=== PATIENT | male | born 1990 | race Caucasian/White ===

== ENCOUNTER 2020-01-23 11:29 | Emergency (ER) | payer OTHER, SELFPAY ==
--- NOTE | ~2020-01-23 | XR_ITS ---
EXAMINATION: XR chest 2V 01/23/2020 12:02 INDICATION: Chest pain PROCEDURE: 2 view chest COMPARISON: No prior studies for comparison. FINDINGS: The lungs are clear. The cardiomediastinal silhouette is within normal limits. There are no pleural effusions. There is no pneumothorax suspected. IMPRESSION: 1: NO ACUTE CARDIOPULMONARY DISEASE. Reviewed, dictated and finalized at location A.
--- NOTE | 2020-01-23 11:30 | ECG_ITS ---
Measurements Intervals [place] Rate: 85 P: 51 DE: 157 QRS: -2 QRSD: 126 T: 78 QT: 341 QTc: 406 Interpretive Statements SINUS RHYTHM INTRAVENTRICULAR CONDUCTION DELAY DELAYED PRECORDIAL R/S TRANSITION BORDERLINE T WAVE ABNORMALITY- LATERAL LEADS BORDERLINE ECG Electronically Signed On 01-23-2020 15:23:16 CDT by Yunier Smith D.O.
[2020-01-23 11:34] VITALS: BP 149/95; PULSE 105; RESP 22; TEMP 36.8; O2SAT 100
[2020-01-23 11:51] LABS: Basophils Absolute Auto 0.1 K/mm3 (0.0-0.1); Basophils Percent Auto 0.9 % (0.2-1.2); Eosinophils Absolute Auto 0.3 K/mm3 (0-0.3); Eosinophils Percent Auto 3.4 % (0-4.4); Hematocrit 47.7 % (42.0-52.0); Immature Granulocyte Absolute 0.02 K/mm3 (0.00-0.031); Immature Granulocyte Percent A 0.2 % (0-0.5); Lymphocytes Absolute Auto 4.12 K/mm3 (0.9-3.2); Lymphocytes Percent Auto 46.4 % (18.3-44.2); Mean Corpuscular HGB Conc 33.5 g/dl (32-36); Mean Corpuscular Hemoglobin 30.5 pg (26-34); Mean Corpuscular Volume 90.9 fl (80-100); Mean Platelet Volume 11.6 fl (7.4-10.4); Monocytes Absolute Auto 0.6 K/mm3 (0.1-0.6); Monocytes Percent Auto 6.2 % (2.6-8.5); Neutrophils Absolute Auto 3.8 K/mm3 (1.3-6.7); Neutrophils Percent Auto 42.9 % (45.5-73.1); Platelet Count Result 193 k/mm3 (150-375); Red Blood Count 5.25 M/mm3 (4.6-6.20); Red Cell Distribution Width 12.5 % (11.5-14.5); White Blood Count 8.9 K/mm3 (4.5-10.0)
[2020-01-23 11:56] VITALS: PULSE 86
[2020-01-23 12:18] VITALS: BP 118/84; PULSE 78; RESP 15; O2SAT 98
--- NOTE | 2020-01-23 12:31 | ED.GENADULT ---
HPI - General Adult General Chief complaint: Chest Pain Stated complaint: cp Time Seen by Provider: 01/23/20 11:44 Source: patient Mode of arrival: ambulatory Limitations: no limitations History of Present Illness HPI narrative: Patient is a 30-year-old male who presents to emergency department for evaluation of cough congestion for the last 2 to 3 days. Patient has not taken anything other than some decongestions for his symptoms notes that he is now having some mild discomfort in the epigastrium denies any dyspnea Related Data Home Medications Medication Instructions Recorded Confirmed rosuvastatin 40 mg PO EVERY OTHER DAY 01/23/20 Allergies Allergy/AdvReac Type Severity Reaction Status Date / Time No Known Allergies Allergy Verified 01/23/20 11:36 Review of Systems Review of Systems: All systems reviewed & are unremarkable except as noted in HPI and below Exam Narrative: Exam Narrative: GENERAL: Well-appearing, well-nourished, and in no acute distress. HEAD: Normocephalic, atraumatic. EYES: PERRLA and EOMI. ENT: Nares clear, no rhinorrhea or epistaxis. Mucous membranes moist. Oropharynx without tonsillar hypertrophy exudate or other lesions. Bilateral TMs pearly llanos nonbulging NECK: Supple. No adenopathy or masses. CHEST: Clear to auscultation. No respiratory distress. No wheezes rales or rhonchi HEART: Regular rate and rhythm. No murmur heard. Normal peripheral pulses. ABDOMEN: Soft, nontender, nondistended EXTREMITIES: Normal range of motion. No edema. SKIN: Warm, dry, no rash. NEURO: No focal deficits. Alert and oriented x3. PSYCH: Normal mood and affect. Course Vital Signs Vital signs: Vital Signs Temperature 98.3 F 01/23/20 11:34 Pulse Rate 105 H 01/23/20 11:34 Respiratory Rate 22 H 01/23/20 11:34 Blood Pressure 149/95 H 01/23/20 11:34 Pulse Oximetry 100 01/23/20 11:34 Temperature 98.3 F 01/23/20 11:34 Pulse Rate 78 01/23/20 12:18 Respiratory Rate 15 01/23/20 12:18 Blood Pressure 118/84 01/23/20 12:18 Pulse Oximetry 98 01/23/20 12:18 Medical Decision Making MDM Narrative Medical decision making narrative: Patient in the room in no distress aware of case findings treatment plan and diagnosis agreeing to follow-up as directed or to return if symptoms worsen or concerns Vital Signs Vital Signs: Vital Signs Temperature 98.3 F 01/23/20 11:34 Pulse Rate 105 H 01/23/20 11:34 Respiratory Rate 22 H 01/23/20 11:34 Blood Pressure 149/95 H 01/23/20 11:34 Pulse Oximetry 100 01/23/20 11:34 Temperature 98.3 F 01/23/20 11:34 Pulse Rate 78 01/23/20 12:18 Respiratory Rate 15 01/23/20 12:18 Blood Pressure 118/84 01/23/20 12:18 Pulse Oximetry 98 01/23/20 12:18 Lab Data Result diagrams: 01/23/20 11:47 01/23/20 12:46 Labs: Lab Results 01/23/20 01/23/20 01/23/20 Range/Units 11:47 12:46 12:46 WBC 8.9 (4.5-10.0) K/mm3 RBC 5.25 (4.6-6.20) M/mm3 Hgb 16.0 (14.0-18.0) g/dL Hct 47.7 (42.0-52.0) % MCV 90.9 (80-100) fl MCH 30.5 (26-34) pg MCHC 33.5 (32-36) g/dl RDW 12.5 (11.5-14.5) % Plt Count 193 (150-375) k/mm3 MPV 11.6 H (7.4-10.4) fl Immature Gran % (Auto) 0.2 (0-0.5) % Neut % (Auto) 42.9 L (45.5-73.1) % Lymph % (Auto) 46.4 H (18.3-44.2) % Johnson % (Auto) 6.2 (2.6-8.5) % Eos % (Auto) 3.4 (0-4.4) % Baso % (Auto) 0.9 (0.2-1.2) % Lymph # (Auto) 4.12 H (0.9-3.2) K/mm3 Johnson # (Auto) 0.6 (0.1-0.6) K/mm3 Eos # (Auto) 0.3 (0-0.3) K/mm3 Baso # (Auto) 0.1 (0.0-0.1) K/mm3 Abs Immat Gran (auto) 0.02 (0.00-0.031) K/mm3 Absolute Neuts (auto) 3.8 (1.3-6.7) K/mm3 Absolute Nucleated RBC 0.0 (0.0-0.012) K/mm3 Nucleated RBC % 0.0 (0.0-0.2) % PT 12.6 (11.1-14.7) Seconds INR 1.0 APTT 27.7 (22.3-36.8) SECONDS Sodium 139 (137-145) mmol/L Potassium 4.1 (3.4-5.0) mmol/L Chlor
[2020-01-23 13:04] LABS: Potassium 4.1 mmol/L (3.4-5.0)
[2020-01-23 13:09] LABS: Blood Urea Nitrogen 16 mg/dL (9-20); Calcium 9.1 mg/dL (8.4-10.2); Carbon Dioxide 29 mmol/L (22-30); Chloride 102 mmol/L (98-107); Estimated CRCL calculation 113 ml/min; Estimated Glomerular Filt Rate > 60; Glucose 99 mg/dL (75-110); Sodium 139 mmol/L (137-145)
[2020-01-23 13:10] LABS: Prothrombin Time 12.6 Seconds (11.1-14.7)
[2020-01-23 13:11] LABS: Partial Thromboplastin Time 27.7 SECONDS (22.3-36.8)
[2020-01-23 13:19] LABS: Troponin I < 0.012 ng/mL (0.000-0.034)
[2020-01-23 13:38] VITALS: BP 122/84; PULSE 76; RESP 16; O2SAT 99
[2020-01-23 14:40] VITALS: BP 118/93; PULSE 72; RESP 14; O2SAT 99
[2020-01-23 14:59] LABS: Troponin I < 0.012 ng/mL (0.000-0.034)
[2020-01-23 15:35] VITALS: BP 115/77; PULSE 76; RESP 16; O2SAT 100
== END 2020-01-23 15:40 | disposition home or self-care (01) ==
PROVIDERS: Emergency Provider Emergency Medicine
DX: J06.9 Acute upper respiratory infection, unspecified (principal); I45.9 Conduction disorder, unspecified; R94.31 Abnormal electrocardiogram [ECG] [EKG]
CPT/HCPCS: 36415; 71046; 80048; 84484; 85025; 85610; 85730; 87804; 93005; 99284

== ENCOUNTER 2020-07-13 01:19 | Outpatient (CLI) | payer OTHER, SELFPAY ==
[2020-07-13 19:20] LABS: SARS-CoV-2 RNA PCR Negative
== END 2020-07-13 01:20 | disposition home or self-care (01) ==
LOC: ANHCOVIDDT 01:19
PROVIDERS: PCP Family Medicine Sports Medicine; Visit Provider Internal Medicine Gastroenterology
DX: Z01.812 Encounter for preprocedural laboratory examination (principal); Z20.828 Contact with and (suspected) exposure to other viral communicable diseases
CPT/HCPCS: 87635; C9803; U0003

== ENCOUNTER 2020-07-15 01:07 | Day surgery (SDC) | payer OTHER, SELFPAY ==
[2020-07-06 12:33] VITALS: BMI 26.3
[2020-07-15 10:02] VITALS: BP 125/75; PULSE 100; RESP 20; TEMP 36.3; O2SAT 98; BMI 25.0
[2020-07-15] MEDS: LACTATED RINGERS 1,000 ML 150 ML IV CONT (10:13)
--- NOTE | 2020-07-15 10:19 | P.PNAN_ITS ---
Anes - Initial Pre Proc Eval Procedure: Operation Date: 07/15/20 10:45 Proposed Procedures p Esophagogastroduodenoscopy - Kilo Byrnes MD Date/Time: 07/15/20 10:19 Surgeon: Kilo Byrnes MD Pre Op Diagnosis: GERD Patient Data Age: 30 Gender: M Height: 1.91 m Weight: 90.8 kg Last Vital Signs Temp 36.3 C L 07/15/20 10:02 Pulse 100 07/15/20 10:02 Resp 20 07/15/20 10:02 BP 125/75 07/15/20 10:02 Pulse Ox 98 07/15/20 10:02 Allergies Allergy/AdvReac Type Severity Reaction Status Date / Time No Known Allergies Allergy Verified 07/15/20 09:54 Home Medications Medication Instructions Recorded Confirmed Type omeprazole 20 mg capsule,delayed 20 mg PO DAILY 06/13/20 07/15/20 History release albuterol sulfate 1 puff INHALATION Q4-6H 07/06/20 07/15/20 History fexofenadine [Yumiko Allergy] 180 mg PO DAILY PRN 07/06/20 07/15/20 History Patient hx anesthesia problems: none Family hx anesthesia problems: none [facility] Past Medical History Medical History (Updated 07/15/20 @ 10:20 by Clifton Bashir MD) Asthma Chest congestion Environmental allergies Gastroesophageal reflux disease Social History Social History Smoking status: Never smoker Alcohol intake: current Drinks per week: 2 Substance use: never Living arrangements: with family Spiritual care concerns: No Anes - Eval Final PreProcedure Day of Procedure 07/15/20 10:19 Patient weight: overweight Heart: regular rate and rhythm Lungs: clear to auscultation and normal air movement Airway: Mallampati scale class II Neurological: alert and oriented Last oral intake: >/= 8 hours ASA classification: II Emergent: no Anesthetic plan: proceed Anesthesia type and monitoring: general GIVS Informed Consent: The patient's anesthetic plan and its attendant risks and benefits were discussed with the patient/family/POA. Questions were solicited and answers provided to the satisfaction of the patient/family/POA.
--- NOTE | 2020-07-15 10:40 | PM.HPGS ---
History of Present Illness History of Present Illness Consent: Risks, benefits, and alternatives have been discussed and questions answered. Patient agrees to proceed with procedure. Chief complaint: GERD Narrative: Reagan Richardson is a 30 year old male with dyspepsia, better with ppi but never had egd Review of Systems Constitutional: Constitutional: Denies headache(s) and Denies weakness Eyes: Eyes: Denies blurry vision ENT: Reports Normal hearing present, Denies headache(s) and Denies neck pain Cardiovascular: Cardiovascular: Denies chest pain and Denies dyspnea Respiratory: Respiratory: Denies dyspnea Gastrointestinal: Gastrointestinal: Reports no additional gastrointestinal complaints Genitourinary: Genitourinary: Denies dysuria Musculoskeletal: Musculoskeletal: Denies neck pain Integumentary/Breasts: Skin/Breast: Denies dry skin Neurologic: Reports Normal hearing present, Denies headache(s) and Denies weakness Psychiatric: Psychiatric: Denies anxiety Endocrine: Endocrine: Denies change in body appearance Hematologic/Lymphatic: Hematologic/Lymphatic: Denies easy bleeding Allergic/Immunologic: Allergic/Immunologic: Denies urticaria PMFSH Past Medical History Medical History (Updated 07/15/20 @ 10:20 by Clifton Bashir MD) Asthma Chest congestion Environmental allergies Gastroesophageal reflux disease Social History Social History Smoking status: Never smoker Alcohol intake: current Drinks per week: 2 Substance use: never Living arrangements: with family Spiritual care concerns: No Meds Home Medications and Allergies Home Medications Medication Instructions Recorded Confirmed Type omeprazole 20 mg capsule,delayed 20 mg PO DAILY 06/13/20 07/15/20 History release albuterol sulfate 1 puff INHALATION Q4-6H 07/06/20 07/15/20 History fexofenadine [Yumiko Allergy] 180 mg PO DAILY PRN 07/06/20 07/15/20 History Allergies Allergy/AdvReac Type Severity Reaction Status Date / Time No Known Allergies Allergy Verified 07/15/20 09:54 Vital Signs Vital Signs - 24 hr 07/15/20 10:02 Temperature 97.4 F L Pulse Rate 100 Respiratory Rate 20 Blood Pressure 125/75 Pulse Oximetry 98 Exam Const: General: comfortable and no acute distress HENMT: General nose exam: Normal nares present Eyes: General: appearance normal, both eyes and all related structures Neck: Neck: no JVD Resp: Auscultation: clear to auscultation bilaterally Cardio: Rate: regular rate Rhythm: regular rhythm GI: Inspection: non-distended GI Palp: Yes Soft to palpation Skin: General skin exam: normal color Neuro: General: gait normal Speech: normal speech Extrem: General: normal to inspection Psych: Mental Status: mental status grossly normal Assessment and Plan Assessment and plan (1) Gastroesophageal reflux disease: Code(s): K21.9 - Gastro-esophageal reflux disease without esophagitis Status: Acute Assessment and Plan: will proceed with egd (2) Chest congestion: Code(s): R09.89 - Other specified symptoms and signs involving the circulatory and respiratory systems Status: Acute
[2020-07-15] MEDS: BENZOCAINE (*SP) 60 ML SPRAY CAN (HURRICAINE) 1 SPRAY MUCOUS MEM (10:47)
[2020-07-15 11:03] VITALS: BP 119/83; PULSE 72; RESP 12; O2SAT 98
[2020-07-15 11:13] VITALS: BP 120/82; PULSE 75; RESP 17; O2SAT 98
[2020-07-15 11:23] VITALS: BP 117/68; PULSE 89; RESP 17; O2SAT 98
== END 2020-07-15 11:58 | disposition home or self-care (01) ==
PROVIDERS: PCP Family Medicine Sports Medicine; Visit Provider Internal Medicine Gastroenterology
PROC: 0DJ08ZZ Inspection of Upper Intestinal Tract, Via Natural or Artificial Opening Endoscopic (ICD-10-PCS; CPT 43235; principal; 2020-07-15 10:45)
DX: K30 Functional dyspepsia (principal); K21.9 Gastro-esophageal reflux disease without esophagitis; J45.909 Unspecified asthma, uncomplicated
CPT/HCPCS: 43239; 87635; 88305; A9270; C9803; J2704; J7120; U0003

== ENCOUNTER 2021-05-11 14:26 | Outpatient (CLI) | payer OTHER, SELFPAY ==
--- NOTE | 2021-05-11 17:21 | WPDPFTINT ---
PFT Procedure Performed PFT Procedure Performed Spirometry with Pre/Post Bronchodilator Plethysmography (Lung Vol) Diffusing Cap (DLCO) Flow Vol Loop PFT Interpretation This is a pulmonary function test with pre and post-bronchodilator spirometry, plethysmography and diffusing capacity. The test was performed and results interpreted in accordance with the 2019 and 2005 ATS/ERS Task Force guidelines respectively using the Global Lung Function Initiative-2012 reference equations. Patient demonstrated good effort and cooperation. Reproducibility criteria were met. The quality of the pre bronchodilator spirometry maneuver was Grade A and post bronchodilator spirometry maneuver was Grade A. Findings: Spirometry: The contour the inspiratory and expiratory flow tracing are normal. The pre bronchodilator FVC is 5.54 L, 86% predicted. The pre bronchodilator FEV1 is 4.32 L, 83% predicted. The FEV1: FVC ratio 78%. The post bronchodilator FVC is 5.49 L, representing a 1% decrease. The post bronchodilator FEV1 is 4.42 L, representing a 2% increase. Plethysmography: The total lung capacity is 7.29 L, 92% predicted. The functional residual capacity is 2.87 L, 72% predicted. The flow residual volume is 1.41 L, 72% predicted. Diffusing capacity: The absolute diffusion capacity is 33.0, 89% predicted. The diffusing capacity corrected for alveolar volume is 5.30, 110% predicted. Impression: The spirometry is normal without evidence of an obstructive abnormality. There is no significant improvement after inhaling a single dose of albuterol. The lung volumes are normal. The diffusing capacity is normal. There are no prior studies for comparison
== END 2021-05-11 14:27 | disposition home or self-care (01) ==
PROVIDERS: PCP Internal Medicine; Visit Provider Internal Medicine
DX: J45.909 Unspecified asthma, uncomplicated (principal)
CPT/HCPCS: 94060; 94726; 94729

== ENCOUNTER 2022-10-16 13:33 | Emergency (ER) | payer OTHER, SELFPAY ==
--- NOTE | 2022-10-16 13:47 | ED.MALEGU ---
HPI - Male Genitourinary General Stated complaint: FREQUENT URINATION/BACK PAIN/DRY HEAVING Time Seen by Provider: 10/16/22 13:47 Source: patient and RN notes reviewed History of Present Illness HPI Narrative: Patient is a 32-year-old male who presents to urgent care with complaints of nausea, increased urination, low back pain, abdominal cramps and chills and sweats that all started suddenly at 4:00 a.m. today. Patient has not taken anything [id number] for his symptoms. Denies any blood in the urine. Denies any history of UTI or kidney stones. No other acute complaints. No acute distress noted. Patient aware of the plan of care. Some parts of this dictation were generated by voice recognition software and may contain typographical and/or grammatical inaccuracies. Related Data Home Medications Medication Instructions Recorded Confirmed omeprazole 20 mg capsule,delayed 20 mg PO DAILY 06/13/20 07/15/20 release albuterol sulfate 90 mcg/actuation 1 puff inhalation Q4-6H 07/06/20 07/15/20 aerosol inhaler fexofenadine 180 mg tablet 180 mg PO DAILY PRN Allergy 07/06/20 07/15/20 (Yumiko Allergy) Symptoms Allergies Allergy/AdvReac Type Severity Reaction Status Date / Time No Known Allergies Allergy Verified 07/15/20 09:54 Review of Systems Review of Systems: CONSTITUTIONAL: Reports chills and sweats EYES: Denies visual changes, redness, or discharge. ENT: Denies rhinorrhea, congestion, sore throat, or otalgia. CARDIOVASCULAR: Denies chest pain, palpitations, or edema. RESPIRATORY: Denies cough or dyspnea. GASTROINTESTINAL: Reports of nausea with abdominal cramping GENITOURINARY: Reports frequent urination, urgency, low back pain SKIN: Denies rash or itching. MUSCULOSKELETAL: Denies back pain, joint pain, or myalgia. NEUROLOGIC: Denies headache, numbness, or weakness. All other systems reviewed are negative, except as documented in HPI. [facility] Past Medical History Medical History (Updated 10/16/22 @ 14:11 by DALE Chou) Asthma Chest congestion Environmental allergies Gastroesophageal reflux disease Social History Social History Smoking status: Never smoker Alcohol intake: current Drinks per week: 2 Substance use: never Spiritual care concerns: No Comments At the time of my signature, I reviewed and agree with the nursing past medical, surgical, social, and family history. There is no relevant family history pertinent to the patient complaint. Exam Narrative: GENERAL: This is a well-nourished, well-developed patient, HEAD: normocephalic, atraumatic. EYES: PERRL. Sclera clear/white. Vision is grossly intact. EARS: External ears normal NOSE: External nose normal with no obvious nasal discharge, nares without redness, no rhinorrhea. THROAT: Mucous membranes moist NECK: Neck supple CARDIOVASCULAR: Tachycardic RESPIRATORY: Clear to auscultation. Breath sounds equal bilaterally. No wheezes, rales, or rhonchi. GASTROINTESTINAL: Abdomen soft, diffuse suprapubic tenderness, nondistended. Bowel sounds are active. SKIN: Slightly diaphoretic. Warm, intact with no suspicious lesions or rash, good texture and turgor. NEURO: awake, alert, and oriented to person, place and time. There were no obvious focal neurologic abnormalities. EXTREMITIES: No clubbing, cyanosis, or edema. BACK: Bilateral CVA tenderness Course Course Level of Care: Express Care Visit Vital Signs Vital signs: Vital Signs Temperature 100.5 F H 10/16/22 14:00 Pulse Rate 116 H 10/16/22 14:00 Respiratory Rate 20 10/16/22 14:00 Blood Pressure 125/77 10/16/22 14:00 Pulse Oximetry 98 10/16/22 14:00 Oxygen Delivery Room Air 10/16/22 14:00 Temperature 100.5 F H 10/16/22 14:00 Pulse Rate 116 H 10/16/22 14:00 Respiratory Rate 20 10/16/22 14:00 Blood Pressure 125/77 10/16/22 14:00 Pulse Oximetry 98 10/16/22 14:00 Oxyge
[2022-10-16 14:00] VITALS: BP 125/77; PULSE 116; RESP 20; TEMP 38.1; O2SAT 98
== END 2022-10-16 14:10 | disposition short-term general hospital (02) ==
PROVIDERS: Emergency Provider Nurse Practitioner Family; PCP Internal Medicine
DX: R11.0 Nausea (principal); R35.0 Frequency of micturition; R10.9 Unspecified abdominal pain; J45.909 Unspecified asthma, uncomplicated; K21.9 Gastro-esophageal reflux disease without esophagitis
CPT/HCPCS: 81003; 87804; 99213; G0463

== ENCOUNTER 2022-10-16 14:28 | Emergency (ER) | payer OTHER, SELFPAY ==
--- NOTE | ~2022-10-16 | CT_ITS ---
EXAMINATION: CT abdomen pelvis w con DATE: 10/16/2022 21:26 INDICATION: morales flank/diffuse ABD pain, nausea, urin freq TECHNIQUE: Computed tomography (CT) of the abdomen and pelvis was performed with 100 mL Omnipaque-350 intravenous contrast. Automated exposure control and iterative reconstruction technique were employe d. The dose-length product was 634.14 mGy-cm. COMPARISON: None. FINDINGS: Lower thorax: Bibasilar scar/atelectasis Liver: 1.3 cm lobulated 64 Hounsfield unit right liver lobe lesion Biliary/Gallbladder: Gallbladder is normal. No bile duct dilation. Pancreas: No mass or duct dilation. Spleen: Normal. Adrenals:No mass. Kidneys: No mass, stone, or hydronephrosis. GI tract: Mild distal esophageal and antral edema. No small or large bowel dilation. Status post appe ndectomy. Mesentery/Peritoneum: No ascites, mass, or free air. Retroperitoneum: No mass. Pelvis: Mild bladder wall thickening given the degree of bladder distention. Remaining pelvic organs are normal. Soft Tissues: Soft tissues and body wall unremarkable. Bones: No acute osseous finding. IMPRESSION: Mild esophagitis/gastritis. 1.3 cm right liver lobe lesion, possibly a cyst or hemangioma but with in determinate imaging features, consider nonemergent, outpatient hepatic MRI for further characterizati on. Mild bladder wall thickening as can be seen with cystitis in the appropriate clinical context. Reviewed, dictated and finalized at location K. [employer]OLOG[employer] INSTRUCTOR IMPRESSION: Mild esophagitis/gastritis. 1.3 cm right liver lobe lesion, possibly a cyst or hemangioma but with indeterminate imaging features, consider nonemergent, outpa tient hepatic MRI for further characterization. Mild bladder wall thickening as can be seen with cystitis in the appropriate clinical context.
[2022-10-16 14:31] VITALS: BP 110/88; PULSE 115; RESP 18; TEMP 37; O2SAT 100
[2022-10-16 14:45] LABS: Basophils Absolute Auto 0.1 K/mm3 (0.0-0.1); Basophils Percent Auto 0.9 % (0.2-1.2); Eosinophils Absolute Auto 0.1 K/mm3 (0-0.3); Eosinophils Percent Auto 1.3 % (0-4.4); Hematocrit 49.5 % (42.0-52.0); Hemoglobin 16.9 g/dL (14.0-18.0); Immature Granulocyte Absolute 0.04 K/mm3 (0.00-0.031); Immature Granulocyte Percent A 0.5 % (0-0.5); Lymphocytes Absolute Auto 0.87 K/mm3 (0.9-3.2); Lymphocytes Percent Auto 11.3 % (18.3-44.2); Mean Corpuscular HGB Conc 34.1 g/dl (32-36); Mean Corpuscular Hemoglobin 31.6 pg (26-34); Mean Corpuscular Volume 92.5 fl (80-100); Mean Platelet Volume 9.5 fl (7.4-10.4); Monocytes Percent Auto 12.5 % (2.6-8.5); Neutrophils Absolute Auto 5.6 K/mm3 (1.3-6.7); Neutrophils Percent Auto 73.5 % (45.5-73.1); Platelet Count Result 235 k/mm3 (150-375); Red Blood Count 5.35 M/mm3 (4.6-6.20); Red Cell Distribution Width 12.7 % (11.5-14.5); White Blood Count 7.7 K/mm3 (4.5-10.0)
[2022-10-16 14:58] LABS: Alanine Aminotransferase 24 U/L (6-50); Albumin Level 5.2 g/dL (3.5-5.1); Alkaline Phosphatase 86 U/L (38-126); Anion Gap 10 mmol/L (8-16); Aspartate Amino Transferase 28 U/L (17-59); Bilirubin,Total 1.1 mg/dL (0.2-1.3); Blood Urea Nitrogen 14 mg/dL (9-20); Calcium 9.4 mg/dL (8.4-10.2); Carbon Dioxide 28 mmol/L (22-30); Chloride 97 mmol/L (98-107); Estimated CRCL calculation 111 ml/min; Estimated Glomerular Filt Rate > 60; Glucose 104 mg/dL (65-110); Potassium 3.7 mmol/L (3.4-5.0); Sodium 135 mmol/L (137-145)
[2022-10-16 17:27] LABS: Add Urine Microscopic? YES; Appearance Urine Clear (Clear); Bilirubin Urine Negative (Negative); Blood Urine Trace-Intact (Negative); Color Urine Light Yellow (Yellow); Glucose Urine UA Negative (Negative); Ketones Urine Trace mg/dL (Negative); Leukocyte Esterase Ur Negative LEU/UL (Negative); Nitrate Urine Negative (Negative); Protein Urine Negative (Negative); Urobilinogen Urine 0.2 mg/dL (<2.0)
[2022-10-16 17:34] LABS: Mucus Urine Rare /lpf
--- NOTE | 2022-10-16 20:56 | ED.ABDPAIN ---
HPI - Abdominal Pain General Chief Complaint: Abdominal Pain <BECKIE Chatman Last Filed: 10/17/22 02:22> Stated Complaint: bilateral flank pain with nausea and chills x 1d <BECKIE Chatman Last Filed: 10/17/22 02:22> Time Seen by Provider: 10/16/22 19:18 <BECKIE Chatman Last Filed: 10/17/22 02:22> Source: patient <BECKIE Chatman Last Filed: 10/17/22 02:22> Mode of arrival: ambulatory <BECKIE Chatman Filed: 10/17/22 02:22> Limitations: no limitations <BECKIE Chatman Filed: 10/17/22 02:22> History of Present Illness HPI narrative: Patient is a 32-year-old male who presents to the ED with multiple complaints. Patient reports he woke up this morning around 4 AM with diffuse body aches, bilateral flank/lower back pain, diffuse abdominal pain. He has also had chills, nausea, urinary frequency, mild sore throat today. Patient has not tried anything for symptoms. He went to an urgent care earlier today and was referred to the ED for further evaluation. He tested negative for COVID and influenza at the urgent care. He is vaccinated for both. Patient denies any dysuria or hematuria, denies history of kidney stones. He denies any issues with diarrhea or constipation, denies known fever, vomiting, cough, cold sx's. <BECKIE Chatman Last Filed: 10/17/22 02:22> Related Data Home Medications: Home Medications Medication Instructions Recorded Confirmed omeprazole 20 mg capsule,delayed 20 mg PO DAILY 06/13/20 07/15/20 release albuterol sulfate 90 mcg/actuation 1 puff inhalation Q4-6H 07/06/20 07/15/20 aerosol inhaler fexofenadine 180 mg tablet 180 mg PO DAILY PRN Allergy 07/06/20 07/15/20 (Yumiko Allergy) Symptoms <BECKIE Chatman Last Filed: 10/17/22 02:22> Allergies/Adverse Reactions: Allergies Allergy/AdvReac Type Severity Reaction Status Date / Time No Known Allergies Allergy Verified 10/16/22 14:30 <Poly Leigh PA-C - Last Filed: 10/17/22 02:22> Review of Systems Review of Systems: CONSTITUTIONAL: Reports chills. Denies fever. EYES: Denies visual changes. ENT: Reports sore throat. Denies rhinorrhea, congestion. CARDIOVASCULAR: Denies chest pain. RESPIRATORY: Denies cough or dyspnea. GASTROINTESTINAL: Reports diffuse abdominal pain, nausea. Denies constipation, vomiting, or diarrhea. GENITOURINARY: Reports urinary frequency. Denies dysuria or hematuria. SKIN: Denies rash or itching. MUSCULOSKELETAL: Reports myalgias, bilateral flank/low back pain. NEUROLOGIC: Denies headache, numbness, or weakness. <Poly Leigh PA-C - Last Filed: 10/17/22 02:22> All systems reviewed & are unremarkable except as noted in HPI and below <Poly Leigh PA-C - Last Filed: 10/17/22 02:22> PMFSH Past Medical History Medical History: Medical History Asthma Chest congestion Environmental allergies Gastroesophageal reflux disease <Poly Leigh PA-C - Last Filed: 10/17/22 02:22> Surgical History Surgical History: Surgical History (Updated 10/16/22 @ 23:31 by Poly Leigh PA-C) History of appendectomy <Poly Leigh PA-C - Last Filed: 10/17/22 02:22> Social History Social History: Social History Smoking status: Never smoker Alcohol intake: current Drinks per week: 2 Substance use: never Spiritual care concerns: No <Poly Leigh PA-C - Last Filed: 10/17/22 02:22> Exam Narrative: GENERAL: Well appearing, well-nourished, non-toxic, in no acute distress. HEAD: Normocephalic, atraumatic. NECK: Supple. No adenopathy, no masses. RESPIRATORY: Airway patent, respirations nonlabored. Clear to auscultation bilaterally, no rales, rhonchi, wheezing. CARDI
[2022-10-16] MEDS: SODIUM CHLORIDE 0.9% IV 1,000 ML 999 ML IV CONT (21:10)
[2022-10-16] MEDS: ONDANSETRON INJ 4 MG/2 ML VIAL IV PUSH (21:10)
[2022-10-16] MEDS: BELLADONNA ALK/PHENOB ELIX 10 ML, MAG HYDROX/ALUMINUM HYD/SIMETH 30 ML, LIDOCAINE HCL 2... PO (22:42)
== END 2022-10-17 00:20 | disposition home or self-care (01) ==
PROVIDERS: Emergency Medicine; Physician Assistant; Emergency Provider Emergency Medicine; PCP Internal Medicine
DX: R10.84 Generalized abdominal pain (principal); K76.9 Liver disease, unspecified; J45.909 Unspecified asthma, uncomplicated; K21.9 Gastro-esophageal reflux disease without esophagitis
CPT/HCPCS: 36415; 74177; 80053; 81001; 81003; 85025; 87491; 87591; 87661; 87804; 96365; 96375; 99284; A9270; J0131; J2405; J7030; Q9967

== ENCOUNTER 2025-06-14 14:37 | Outpatient (CLI) | payer OTHER, SELFPAY ==
--- NOTE | ~2025-06-14 | XR_ITS ---
XR skull min 4V 06/14/2025 15:10 Indication: Bony exostosis left for head Procedure: 5 views of the skull Comparison: No prior studies for comparison. Findings: No fracture, subluxation or dislocation. No definite exostosis identified. Paranasal sinuse s and orbits are unremarkable. Mandible intact. Impression: 1: No significant bone or joint abnormality. Reviewed, dictated and finalized at location A. Impression: 1: No significant bone or joint abnormality.
--- OUTSIDE RECORDS SUMMARY | 2025-06-14 15:05 | XMS_ITS ---
Author Organization [facility] [employer] Address [address] [place] [address] Care Team Providers Care Ropewalk Rope Maker Name Role Phone José Miguel CALLAHAN, Johana Primary Care Provider Un available Esperanza Mendiola Unavailable [phone] Allergies No Known Allergies REASON FOR VISIT 6 month f/u Medications Medication SIG (Take, Route, Frequency, Duration) Notes Start Date End Date Status FLUoxetine HCl 20 MG 1 capsule Oral Once a day; Duration: 90 days dose increase, please cancel 10mg scripts Active Atorvastatin Calcium 40 MG Oral 02/03/2024 Active Social History Tobacco Use: Social History Observation Description Date Details (start date - stop date) Never Smoker NA - NA Sex Assigned At : Social History Observation Description Sex Assigned At Male Tobacco Control (Standard) Question Answer Notes Tobacco use: Nonsmoker Vital Signs Blood pressure systolic 112 mm Hg 06/14/20 25 Blood pressure diastolic 72 mm Hg 025 Heart Rate 65 /min 06/14/2025 Height 75.00 in 06/14/2025 Weight 199.2 lbs 06/14/2025 BMI 24.9 kg/m2 06/14/2025 Height-cm 190.50 cm 06/14/2025 Weight-kg 90.36 kg 06/14/2025 Encounters Encounter Location Date Provider Diagnosis [facility] [place] [address] [facility] [address] [place] [address] 06/14/2025 Esperanza Mendiola Obsessive-compulsive disorder, unspecified F42.9 Assessments Encounter Date Diagnosis (ICD Code) Assessment Notes Treatment Notes Treatment Clinical Notes Section Notes 06/14/2025 Obsessive-compu lsive disorder, unspecified (ICD-10 - F42.9) Increase fluoxetine to 20mg daily for anxiety Patient educated on all medications including potential benefits, side effects, risks. Educated on proper dosing schedule and importance of compliance. Continue counseling with Imani -Assessment and treatment plan reviewed with patient. -Compliance with treatment plan importance discussed. -Discussed the risks/benefits of this medication -Discussed medication side effects. -Contact office if symptoms worsen. -Discussed that it can take up to 6-8 weeks to see full therapeutic effects of psychotropic medications. -Crisis prevention hotline 988. Plan Of Treatment Medication Medication Name Sig Start Date Stop Date Notes FLUoxetine HCl 20 MG 1 capsule Oral Once a day; Duration: 90 days dose increase, pl ease cancel 10mg scripts Treatment Notes Assessment Notes Obsessive-compulsive disorder, unspecifi ed Increase fluoxetine to 20mg daily for anxiety Patient educated on all medications including potential benefits, side effects, risks. Educated on proper dosing schedule and importance of compliance. Continue counseling with Imani Next Appt Details Follow Up: 3 Months, Reason: med follow up Provider Name:Imani Smith, 06/16/2025 01:00:00 PM, [address], [address], [address], Provider Name:Imani Smith, 06/23/2025 04:00:00 PM, [address], [address], [place], [address], Provider Name:Imani Smith, 07/07/2025 04:00:00 PM, [address], [address] [place], [address], Provider Name:Imani Smith, 07/29/2025 02:00:00 PM, [address], [address], [place], [address], Provider Name:Esperanza huertas, 09/06/2025 08:00:00 AM, [address], [address], [place], [address], Progress Notes * ASHLEY CHING PDOB:[birth year] (35 yo M)Acc No.[id number]:06/14/2025 Patient: ASHLEY BLAIR Provider: KORY CAZARES :1990 A ge:35 Y S ex:Male Date:06/14/2025 Address:[address] [place], [place] [id number] Pcp:Johana Valdez MD Subjective: * Chief Complaints: * 6 month f/u * HPI: H istory of Presenting Problem: Medication Side Effects d enies. Anxiety R ates anxiety 5/10 with 10 being most severe. Denies recent panic attacks. . Mood lability n o hx of dillon . Obsessive thoughts H yperfixates on certain things out of his control . Psychosis n o hx of psychosis . Suicidal ideation d enies . Psychotherapy J saba. Here for follow up. No medication changes made last apt. His sister is expecting, which he expresses exctied for. He continues to struggle with intrusive thoughts, although states they are not as bad. He has been able to work through them although is still bothersome. Denies panic attacks. Denies feeling depressed, not hopeless or helpless, no sucidal ideation. Sleep is fair, getting about 6-7 hours nightly. Energy level comes and goes. Appetite is good. P ast Psychiatric Hospitalizations: Social hx: Lives with (Raymond). No children. Has one dog. 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 Has completed Master's degree. Reports he likes his job. Support system-friends, parents, . From [facility]. Medical hx: High cholesterol. Denies history of head trauma or seizures. Previous Psychiatric History previous psychiatrist/counselor: none previous admissions/IOP/PHP: denies history of SI/SA: None family psychiatric history: none previously trialled medications: none history of neglect/abuse/trauma: denies substance use history: Cannabis gummies every once in a while. D epression screening: PHQ-9 L ittle interest or pleasure in doing things?Not at all F eeling down, depressed, or hopeless N ot at all T rouble falling or staying asleep, or sleeping too much S ever F eeling tired or having little energy S ever P oor appetite or overeating N ot at all F eeling bad about yourself or that you are a failure, or have let yourself or your family down S ever T rouble concentrating on things, such as reading the newspaper or watching television S M oving or speaking so slowly that other people could have noticed; or the opposite, being so fidgety or restless that you have been moving around a lot more than usual N ot at all T houghts that you would be better off or of hurting yourself in some way N ot at all T otal Score 4 I nterpretation M inimal Depression Intervention D epression Screening Findings N egative F ollow-Up for Depression P sychiatric follow-up S uicide Risk Assessment Performed - -date D epression Screening: CARI-7 (2018 Edition) F eeling nervous, anxious, or on edge S ever N ot being able to stop or control worrying?Several days W orrying too much about different things S ever T rouble relaxing S ever B eing so restless that it is hard to sit still S B ecoming easily annoyed or irritable N ot at all F eeling afraid as if something awful might happen N ot at all T otal CARI-7 Score 5 I f you checked any problems, how difficult have they made it for you to do your work, take care of things at home, or get along with other people? S omewhat difficult I nterpretation of Total ( 5 to 9) Mild * ROS: P sychiatric: Patient denies d epressed mood, suicidal thoughts, dillon, psychosis. P atient complains of a nxiety. C graciela S ee HPI for details. * Medical History: * Surgical History: A ny surgical history 06/04/2006ppendectomy (42442) 06/04/2006 * Hospitalization/Major Diagno stic Procedure: D enies Past Hospitalization * Family History: U nspecified Relation: Alcohol abuse . 1 brother(s) , 2 sister(s) . . Oldest of 4 kids. * Social History: T obacco Use: T obacco Control (Standard) T obacco use: N onsmoker M igrated Social History: M igrated Social History: Alcohol Intake: Moderate 08/27/2023,Tobacco Years: Former smoker 08/27/2023. M iscellaneous: A dvance Care Planning A re you your own decision-maker Yes , Do you have Power of Truck Mechanic for Health or Medical? No. * Medications: T akingAtorvastatin Calcium 40 MG Tablet Oral FLUoxetine HCl 10 MG Capsule 1 capsule Oral Once a day Medication List reviewed and reconciled with the patientTaking Atorvastatin Calcium 40 MG Tablet Oral Taking FLUoxetine HCl 10 MG Capsule 1 capsule Oral Once a day Medication List reviewed and reconciled with the patient * Allergies: N .K.D.A.no[Allergies Verified] Objective: * Vitals: B P:112/72mm Hg, HR:65/min, Wt:199.2lbs, Wt-k.36 kg, Ht: 75.00 in, Ht-cm: 190.50 cm, BMI:24.9Index, Body Surface Area: 2.18. * Examination: P sychiatry: Appearance: w ell-groomed. Abnormal body movements: n one. Affect / mood: a ppropriate. Attention: g ood. Attitude: c ooperative. Homicidal ideation: n one. Suicidal ideation: n one. Degree of awareness of surroundings: w ithin normal limits.? Delusions: n o. Hallucinations: n o. Insight: g ood. Judgement: g ood. Orientation: a wake, alert and oriented x 3. Perceptual disorders: n o perceptual disorder noted. Psychomotor activity: w ithin normal range. Speech / language: n ormal rate, volume, and articulation (RVR). Thought content: a ppropriate. Thought process: i ntact. Assessment: * Assessment: 1. O bsessive-compulsive disorder, unspecified - F42.9 (Primary) Plan: * Treatment: * Procedure Codes: 9 6127 BEHAV ASSMT W/SCORE & DOCD/STAND [id number] VISIT COMPLEXITY INHERENT TO ONGOING CARE RELATED TO A PATIENT'S SINGLE, SERIOUS CONDITION OR A COMPLEX CONDITION * Preventive Medicine: Screenings: D epression screening Have you had a recent depression screening? Y es * Follow Up: 3 Months (Reason: med follow up) * Billing Information: * Visit Code: 45732 OFFICE OUTPATIENT VISIT 25 MINUTES DETAILED HISTORY AND EXAM/MODERATE MEDICAL DECISION MAKING. * Procedure Codes: 69242 BEHAV ASSMT W/SCORE & DOCD/STAND INSTRUMENT. G2211 VISIT COMPLEXITY INHERENT TO ONGOING CARE RELATED TO A PATIENT'S SINGLE, SERIOUS CONDITION OR A COMPLEX CONDITION. * Sign off status: Completed true * Provider: WILLY CAZARESP Date: 06/14/2025 Generated for Yves kaplan/Kwame/Tatiransmitting on: 06/14/2025 03:05 PM CDT History and Physical Notes * HPI (History of Present Illness) Category Sub-Category Detail Notes Category Not es History of Presenting Problem Anxiety Rates anxiety 5/10 with 10 b eing most severe. Denies recent panic attacks. Here for follow up. No medication changes made last apt. His sister is expecting, which he expresses exctied for. He continues to struggle with intrusive thoughts, although states they are not as bad. He has been able to work through them although is still bothersome. Denies panic attacks. Denies feeling depressed, not hopeless or helpless, no sucidal ideation. Sleep is fair, getting about 6-7 hours nightly. Energy level comes and goes. Appetite is good. Suicidal ideation denies Psychosis no hx of psychosis Mood lability no hx of dillon Obsessive thoughts Hyperfixates on cert ain things out of his control Psychotherapy Imani Medication Side Effects denies Past Psychiatric Hospitalizations Social hx: Lives with (Raymond). No children. Has one dog. 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 Has completed Master's degree. Reports he likes his job. Support system-friends, parents, . From [facility]. Medical hx: High cholesterol. Denies history of head trauma or seizures. Previous Psychiatric History previous psychiatrist/counselor: none previous admissions/IOP/PHP: denies history of SI/SA: None family psychiatric history: none previously trialled medications: none history of neglect/abuse/trauma: denies substance use history: Cannabis gummies every once in a while. Depression screening PHQ-9 Little inte rest or pleasure in doing things: Not at all Feeling down, depressed, or hopeless: No t at all Trouble falling or staying asleep, or sl eeping too much: Several days Feeling tired or having little energy: S everal days Poor appetite or overeating: Not at all Feeling bad about yourself o r that you are a failure, or have let yourself or your family down: Several days Trouble concentrating on thi ngs, such as reading the newspaper or watching television: Several days Moving or speaking so slowly that other people could have noticed; or the opposite, being so fidgety or restless that you have been moving around a lot more than usual: Not at all Thoughts that you would be b netta off or of hurting yourself in some way: Not at all Total Score: 4 Interpretation: Minimal Depression Intervention Depression Screening Findings: N egative Follow-Up for Depression: Psychiatric fo llow-up Suicide Risk Assessment Performed: --mayi e Depression Screening CARI-7 (2018 Edition) Feelin g nervous, anxious, or on edge: Several days Not being able to stop or control worryi ng: Several days Worrying too much about different things : Several days Trouble relaxing: Several days Being so restless that it is hard to sit still: Several days Becoming easily annoyed or irritable: No t at all Feeling afraid as if something awful terence ht happen: Not at all Total CARI-7 Score: 5 If you checked any problems, how difficult have they made it for you to do your work, take care of things at home, or get along with other people?: Somewhat difficult Interpretation of Total: (5 to 9) Mild Examination Category Sub-Category Detail Notes Category Not es Psychiatry Appearance: well-groomed Attitude: cooperative Psychomotor activity: within normal rang e Abnormal body movements: none Attention: good Degree of awareness of surroundings: wit hin normal limits Orientation: awake, alert and isabel ented x 3 Affect / mood: appropriate Speech / language: normal rate, volume, and articulation (RVR) Insight: good Judgement: good Thought process: intact Thought content: appropriate Perceptual disorders: no perceptual diso rder noted Suicidal ideation: none Homicidal ideation: none Delusions: no Hallucinations: no
--- OUTSIDE RECORDS SUMMARY | 2025-06-14 15:05 | XMS_ITS | Clinical Summary ---
Author Organization [facility] Address [address] [place] [address] Phone Care Team Providers Care Paper Coating Supervisor Name Role Phone Provider, None Primary Care Provider Unavailabl e Allergies No known active allergies Medications oseltamivir (TAMIFLU) 75 MG CapsuleIndicati ons:Flu-like symptoms,Fever, unspecified fever cause Take 1 Cap by mouth 2 times daily. 10 Cap 0 7 Active Additional Information Patient not taking.Reported on 12/11/2017 methylPREDNISol one (MEDROL DOSPACK) 4 MG Tablet Therapy PackIndications :Rash Use as per instructions on package. 1 Dose Pack 8 Active Active Problems Problem Noted Date Diagnosed Date Synovitis 02/29/2016 Social History Tobacco Use Types Packs/Day Years Used Date Smoking Tobacco: Never Smokeless Tobacco: Never Tobacco Cessation:Counseling Given: No Alcohol Use Standard Drinks/Week Comments No 0 (1 standard drink = 0.6 oz pur e alcohol) Sex and Gender Information Value Date Recorded Sex Assigned at Not on file Legal Sex Male 1:11 AM CDT Gender Identity Not on file Sexual Orientation Not on file Last Filed Vital Signs Vital Sign Reading Time Taken Comments Blood Pressure 127/77 12/11/2017 11:35 AM DYNAMITE RECLAIMER Pulse 81 12/11/2017 11:35 AM DYNAMITE RECLAIMER Temperature 36.5 C (97.7 F) 12/11/2017 11:35 AM DYNAMITE RECLAIMER Respiratory Rate 14 12/11/2017 11:35 AM DYNAMITE RECLAIMER Oxygen Saturation 98% 12/11/2017 11:35 AM DYNAMITE RECLAIMER Inhaled Oxygen Concentration - - Weight 90.3 kg (199 lb) 12/11/2017 11:35 AM DYNAMITE RECLAIMER Height 190.5 cm (6' 3) 12/11/2017 11:35 AM DYNAMITE RECLAIMER Body Mass Index 24.87 12/11/2017 11:35 AM DYNAMITE RECLAIMER Plan of Treatment Health Maintenance Due Date Last Done Comments Hepatitis C Virus (HCV) Screening 1990 TdaP Immunization 1990 Hepatitis B Immunization (1 of 3 - 19+ 3-dose series) 01/17/2008 Human Papillomavirus (HPV) Immunization (1 - 3-dose SCDM series) 01/17/2016 SARS-COV-2 Immunization (1 - 2023-25 season) 2024 Influenza Immunization (#1) 2025 Respiratory Syncytial Virus (RSV) Immunization (Adult) (1 - 1-dose 75+ series) 01/17/2064 Meningococcal Immunization (ACWY) Aged Out No longer eligible based on patient's age to complete this topic Pneumococcal Immunization Combined Aged Out No longer eligible based on patient's age to complete this topic Rotavirus Immunization Aged Out No lo nger eligible based on patient's age to complete this topic Insurance Care Teams Paper Coating Supervisor Relationship Specialty Start Date End Date Provider, None [place] PCP - General 09/22/15
--- OUTSIDE RECORDS SUMMARY | 2025-06-14 15:06 | XMS_ITS | Clinical Summary ---
Author Organization [facility] [employer] Address [address] [place] [address] Care Team Providers Care Elderly Companion Name Role Phone Unavailable Primary Care Provider Unavailabl e Source Comments [facility] [employer],non-owned Affiliates and Associated Physician Practices is amultiple site organization consisting of ambulatory clinics and hospital sitesin [place], [place], [place] and [place]. This disclosure is being madepursuant to the Care Everywhere program and may not contain all information available regarding this patient. Last updated 18.[employer] [facility] Allergies No known active allergies Medications * Be aware that medications may not be up to date on this document. Alwaysverify current medications with the patient. rosuvastatin (CRESTOR) 10 MG tablet Take 10 mg by mouth once daily Active Family History Medical History Relation Name Comments Thyroid Disease Mother Relation Name Status Comments Father Alive Mother Alive Social History Tobacco Use Types Packs/Day Years Used Date Smoking Tobacco: Never Smokeless Tobacco: Never Sex and Gender Information Value Date Recorded Sex Assigned at Not on file Legal Sex Male 2:15 PM CDT Gender Identity Not on file Sexual Orientation Not on file Last Filed Vital Signs Vital Sign Reading Time Taken Comments Blood Pressure 124/80 11/20/2019 12:01 PM DEEP FRYER ASSEMBLER Pulse 77 11/20/2019 12:01 PM DEEP FRYER ASSEMBLER Temperature 36.9 C (98.4 F) 11/20/2019 12:01 PM DEEP FRYER ASSEMBLER Respiratory Rate 16 11/20/2019 12:01 PM DEEP FRYER ASSEMBLER Oxygen Saturation 97% 11/20/2019 12:01 PM DEEP FRYER ASSEMBLER Inhaled Oxygen Concentration - - Weight 90.7 kg (200 lb) 11/20/2019 12:01 PM DEEP FRYER ASSEMBLER Height 190.5 cm (6' 3) 11/20/2019 12:01 PM DEEP FRYER ASSEMBLER Body Mass Index 25 11/20/2019 12:01 PM DEEP FRYER ASSEMBLER Plan of Treatment Health Maintenance Due Date Last Done Comments HIV SCREENING 01/17/2004 HEPATITIS C SCREENING 01/12/2007 DTAP/TDAP/TD VACCINES (1 - Tdap) 01/17/2008 HEPATITIS B VACCINE (1 of 3 - 19+ 3-dose series) 01/17/2008 HPV VACCINE (1 - 3-dose SCDM series) 01/17/2016 COVID-19 VACCINE (1 - 2023-2 5 season) 2024 DEPRESSION SCREENING 11/04/2024 INFLUENZA VACCINE (#1) 2025 9, 08/21/2018 ZOSTER VACCINE (1 of 2) 2039 HIB VACCINE Aged Out No longer eligi ble based on patient's age to complete this topic MENINGOCOCCAL (Group B) VACCINE SHARED DECISION-MAKING Aged Out No longer eligible based on patient's age to complete this topic MENINGOCOCCAL GROUPS A/C/Y/W VACCINE Aged Out No longer eligible b ased on patient's age to complete this topic PNEUMOCOCCAL VACCINE Aged Out No long er eligible based on patient's age to complete this topic Insurance AETNA AETNA
--- OUTSIDE RECORDS SUMMARY | 2025-06-14 15:06 | XMS_ITS | Patient Health Record ---
Author Organization [facility] As Tailored Address [address] [place] [address] Care Team Providers Care Scientific Publications Editor Name Role Phone José Miguel CALLAHAN, Johana Primary Care Provider Un available Esperanza Mendiola Unavailable [phone] Imani Garcia Unavailable [phone] Allergies No Known Allergies Reason For Referral No Information Medications Medication SIG (Take, Route, Frequency, Duration) Notes Start Date End Date Status FLUoxetine HCl 20 MG 1 capsule Oral Once a day; Duration: 90 days dose increase, please cancel 10mg scripts Active Atorvastatin Calcium 40 MG Oral 02/03/2024 Active Immunizations Vaccine Route Administration Date Status Comme nts COVID-19 (SARS-COV-2) vaccin e, unspecified Unknown 01/27/2021 Administered COVID-19 (SARS-COV-2) vaccin e, unspecified Unknown 02/24/2021 Administered Influenza virus vaccine, quadrivalent (IIV4), split virus, 0.25 mL dosage Unknown 08/04/2020 Administered Influenza virus vaccine, quadrivalent (IIV4), split virus, 0.25 mL dosage Unknown 08/29/2021 Administered Influenza virus vaccine, quadrivalent (IIV4), split virus, 0.25 mL dosage Unknown 08/10/2022 Administered Novel [id number], preservative free Unknown 08/21/2018 Administered Novel [id number], preservative free Unknown 08/17/2019 Administered [employer] Covid-19 Vac cine 2nd dose Unknown 09/24/2021 Administered Social History Tobacco Use: Social History Observation Description Date Details (start date - stop date) Never Smoker NA - NA Sex Assigned At : Social History Observation Description Sex Assigned At Male Tobacco Control (Standard) Question Answer Notes Tobacco use: Nonsmoker Problems Problem Type SNOMED Code ICD Code Onset Dates Problem Status W/U Status Risk Notes Problem Attention deficit hyperactivity disorder, combined type (64114416) Attention-deficit hyperactivity disorder, combined type (F90.2) Active confirmed Problem Obsessive-compuls davi disorder (375565036) Obsessive-compuls davi disorder, unspecified (F42.9) Active confirmed Vital Signs Heart Rate 65 /min 06/14/2025 Height-cm 190.50 cm 06/14/2025 Blood pressure diastolic 72 mm Hg 06/14/2025 Weight-kg 90.36 kg 06/14/2025 Height 75.00 in 06/14/2025 Blood pressure systolic 112 mm Hg 06/14/2025 Weight 199.2 lbs 06/14/2025 BMI 24.9 kg/m2 06/14/2025 Encounters Encounter Location Date Provider Diagnosis [place] [address] [facility] [address] [address] 09/28/2024 Imani Smith [place] [address] [facility] [address] [address] 07/22/2024 Imani Smith Obsessive-compulsive disorder, unspecified F42.9 and Attention-deficit hyperactivity disorder, combined type F90.[address] [address] 08/10/2024 Imani Smith Obsessive-compulsive disorder, unspecified F42.9 and Attention-deficit hyperactivity disorder, combined type F90.2 [place] [id number] [address] 08/24/2024 Imani Smith Obsessive-compulsive disorder, unspecified F42.9 and Attention-deficit hyperactivity disorder, combined type F90.2 [place] [address] [address] 09/07/2024 Imani Smith Obsessive-compulsive disorder, unspecified F42.9 and Attention-deficit hyperactivity disorder, combined type F90.[address] [address] 09/07/2024 Esperanza Kurilla Obsessive-compulsive disorder, unspecified F42.9 [facility], [facility] [address] [place] [address] 10/23/2024 Imani Garza Luis Obsessive-compulsive disorder, unspecified F42.9 and Attention-deficit hyperactivity disorder, combined type F90.2 [facility], [facility] [address] [place] [address] 12/02/2024 Imani Garza Luis Obsessive-compulsive disorder, unspecified F42.9 and Attention-deficit hyperactivity disorder, combined type F90.2 [facility], [facility] [address] [place] [address] 12/21/2024 Esperanza Kurilla Obsessive-compulsive disorder, unspecified F42.9 [facility], [facility] [address] [place] [address] 12/28/2024 Imani Garza Luis [facility], [facility] [address] [place] [address] 01/04/2025 Imani Garza Luis Obsessive-compulsive disorder, unspecified F42.9 and Attention-deficit hyperactivity disorder, combined type F90.2 [facility], [facility] [address] [place] [address] 02/02/2025 Imani Garza Luis Obsessive-compulsive disorder, unspecified F42.9 and Attention-deficit hyperactivity disorder, combined type F90.2 [facility] [address] [place] [address] 02/24/2025 Imani Garza Luis Obsessive-compulsive disorder, unspecified F42.9 and Attention-deficit hyperactivity disorder, combined type F90.2 [facility], [facility] [address] [place] [address] 03/10/2025 Imani Garza Luis Obsessive-compulsive disorder, unspecified F42.9 ; Attention-deficit hyperactivity disorder, combined type F90.2 and Encounter for screening for depression Z13.31 [facility], [facility] [address] [place] [address] 03/24/2025 Imani Garza Luis Obsessive-compulsive disorder, unspecified F42.9 and Attention-deficit hyperactivity disorder, combined type F90.2 [facility], [facility] [address] [place] [address] 04/07/2025 Imanijayne Smith Obsessive-compulsive disorder, unspecified F42.9 and Attention-deficit hyperactivity disorder, combined type F90.2 [facility], [facility] [address] [place] [address] 05/05/2025 Imani Smith Obsessive-compulsive disorder, unspecified F42.9 and Attention-deficit hyperactivity disorder, combined type F90.2 [facility] [address] [place] [address] 05/18/2025 Imanijayne Smith Obsessive-compulsive disorder, unspecified F42.9 and Attention-deficit hyperactivity disorder, combined type F90.2 [facility] [address] [place] [address] 06/02/2025 Imani Smith Attention-deficit hyperactivity disorder, combined type F90.2 and Obsessive-compulsive disorder, unspecified F42.9 [place] [address] [place] [address] 06/14/2025 Esperanzakamille Mendiola Obsessive-compulsive disorder, unspecified F42.9 [place] [address] [place] [address] 12/14/2024 Imani Smith [facility], [facility] [address] [place] [address] 12/11/2024 Esperanza Mendiola [facility], [facility] [address] [place] [address] 12/28/2024 Esperanza Mendiola [facility], [facility] [address] [place] [address] 12/28/2024 Esperanzakamille Mendiola [facility], [facility] [address] [place] [address] 12/28/2024 Esperanzakamille Mendiola [facility], [facility] [address] [place] [address] 03/14/2025 Esperanza Kurilla Obsessive-compulsive disorder, unspecified F42.9 Assessments Encounter Date Diagnosis (ICD Code) Assessment Notes Treatment Notes Treatment Clinical Notes Section Notes 01/04/2025 Obsessive-comp ulsive disorder, unspecified (ICD-10 - F42.9) 05/18/2025 Obsessive-comp ulsive disorder, unspecified (ICD-10 - F42.9) 06/02/2025 Attention-defi cit hyperactivity disorder, combined type (ICD-10 - F90.2) 06/02/2025 Obsessive-comp ulsive disorder, unspecified (ICD-10 - F42.9) 06/14/2025 Obsessive-comp ulsive disorder, unspecified (ICD-10 - F42.9) Increase fluoxetine [...] of psychotropic medications. -Crisis prevention hotline 988. 03/14/2025 Obsessive-comp ulsive disorder, unspecified (ICD-10 - F42.9) 02/02/2025 Obsessive-comp ulsive disorder, unspecified (ICD-10 - F42.9) 02/24/2025 Attention-defi cit hyperactivity disorder, combined type (ICD-10 - F90.2) 02/24/2025 Obsessive-comp ulsive disorder, unspecified (ICD-10 - F42.9) 03/10/2025 Attention-defi cit hyperactivity disorder, combined type (ICD-10 - F90.2) 03/10/2025 Obsessive-comp ulsive disorder, unspecified (ICD-10 - F42.9) 03/24/2025 Attention-defi cit hyperactivity disorder, combined type (ICD-10 - F90.2) 03/24/2025 Obsessive-comp ulsive disorder, unspecified (ICD-10 - F42.9) 04/07/2025 Attention-defi cit hyperactivity disorder, combined type (ICD-10 - F90.2) 04/07/2025 Obsessive-comp ulsive disorder, unspecified (ICD-10 - F42.9) 05/05/2025 Attention-defi cit hyperactivity disorder, combined type (ICD-10 - F90.2) 05/05/2025 Obsessive-comp ulsive disorder, unspecified (ICD-10 - F42.9) 07/22/2024 Attention-defi cit hyperactivity disorder, combined type (ICD-10 - F90.2) Obsessive-Compul sive Disorder (OCD) - Assessment: Mild OCD with intrusive thoughts and repetitive song loops causing distress. Prozac prescribed with noticeable symptom improvement. - Plan: - Continue Prozac; monitor effectiveness and side effects. - Discuss long-term management, including potential CBT integration for coping mechanisms. Work-Related Stress and Burnout - Assessment: Increased stress due to new role in [employer]. History of burnout; concerned about future distress. - Plan: Explore stress management techniques, potentially integrating into therapy. Develop coping strategies for high-pressure work situations. Anxiety and Marijuana Use - Assessment: Uses marijuana edibles for anxiety management. Concern about potential anxiety exacerbation from marijuana use. - Plan: - Monitor relationship between marijuana use and anxiety symptoms. - Discuss alternative anxiety management strategies. Family and Social Dynamics - Assessment: Supportive partner and friend group. Significant family dynamics, including challenging coming-out process. Improved but complex family relationships. - Plan: Provide ongoing support for navigating family relationships and enhancing social networks. Encourage open discussion of family dynamics' impact on mental health. General Mental Health and Wellbeing - Assessment: History of bullying impacting self-esteem. 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 - Plan: - Offer safe space to discuss past experiences and their mental health impact. - Introduce CBT strategies for residual effects of negative experiences. - Focus on building resilience and self-acceptance. Overall: Continue supportive therapy, focusing on OCD symptoms, work stress, and personal history impacts. Encourage ongoing communication about strategy effectiveness; adjust as needed. Obsessive-Compul sive Disorder (OCD) - Assessment: Reagan reports a resurgence of OCD symptoms - Plan: - Refer Reagan to an OCD specialist based in [place] for potential telehealth sessions, as discussed. This specialist is noted for their expertise in OCD and may provide targeted therapy to address Reagan's specific symptoms. - Provide Reagan with educational resources on cognitive distortions that exacerbate anxiety and OCD symptoms, including addressing shoulda, woulda, coulda thinking and all or nothing perspectives that may be worsening his condition. - Encourage Reagan to practice cognitive techniques to manage intrusive thoughts and anxiety, such as allowing anxious thoughts to enter without resistance, which can help reduce their intensity and frequency. - Recommended reading materials on anxiety management, including DARE: The New Way to End Anxiety and Stop Panic Attacks for additional coping strategies. General Anxiety - Assessment: Reagan is experiencing increased anxiety due to recent life changes, including becoming a single-income household and changes in daily routines. He reports symptoms of anxiety such as intrusive thoughts and emotional distress. Reagan also mentions difficulty maintaining his usual work routine and focus due to the recent stressors. - Plan: - Discussed and encourage the use of cognitive-behavi oral strategies to manage anxiety, such as reframing anxious thoughts to perceive them as excitement, engaging in mindfulness, and actively inviting anxiety in to reduce its impact. - Continue supportive therapy sessions to monitor Reagan's anxiety levels and adjust coping strategies as needed, ensuring they are tailored to his ongoing life circumstances and mental health needs. - Provided Reagan with cognitive restructuring worksheets to help identify and challenge anxious thoughts, particularly those related to catastrophizing and fortune-telling. 07/22/2024 Obsessive-comp ulsive disorder, unspecified (ICD-10 - F42.9) Obsessive-Compul sive Disorder (OCD) - Assessment: Mild OCD with intrusive thoughts and repetitive song loops causing distress. Prozac prescribed with noticeable symptom improvement. - Plan: - Continue Prozac; monitor effectiveness and side effects. - Discuss long-term management, including potential CBT integration for coping mechanisms. Work-Related Stress and Burnout - Assessment: Increased stress due to new role in [employer]. History of burnout; concerned about future distress. - Plan: Explore stress management techniques, potentially integrating into therapy. Develop coping strategies for high-pressure work situations. Anxiety and Marijuana Use - Assessment: Uses marijuana edibles for anxiety management. Concern about potential anxiety exacerbation from marijuana use. - Plan: - Monitor relationship between marijuana use and anxiety symptoms. - Discuss alternative anxiety management strategies. Family and Social Dynamics - Assessment: Supportive partner and friend group. Significant family dynamics, including challenging coming-out process. Improved but complex family relationships. - Plan: Provide ongoing support for navigating family relationships and enhancing social networks. Encourage open discussion of family dynamics' impact on mental health. General Mental Health and Wellbeing - Assessment: History of bullying impacting self-esteem. 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 - Plan: - Offer safe space to discuss past experiences and their mental health impact. - Introduce CBT strategies for residual effects of negative experiences. - Focus on building resilience and self-acceptance. Overall: Continue supportive therapy, focusing on OCD symptoms, work stress, and personal history impacts. Encourage ongoing communication about strategy effectiveness; adjust as needed. Obsessive-Compul sive Disorder (OCD) - Assessment: Reagan reports a resurgence of OCD symptoms - Plan: - Refer Reagan to an OCD specialist based in [place] for potential telehealth sessions, as discussed. This specialist is noted for their expertise in OCD and may provide targeted therapy to address Reagan's specific symptoms. - Provide Reagan with educational resources on cognitive distortions that exacerbate anxiety and OCD symptoms, including addressing shoulda, woulda, coulda thinking and all or nothing perspectives that may be worsening his condition. - Encourage Reagan to practice cognitive techniques to manage intrusive thoughts and anxiety, such as allowing anxious thoughts to enter without resistance, which can help reduce their intensity and frequency. - Recommended reading materials on anxiety management, including DARE: The New Way to End Anxiety and Stop Panic Attacks for additional coping strategies. General Anxiety - Assessment: Reagan is experiencing increased anxiety due to recent life changes, including becoming a single-income household and changes in daily routines. He reports symptoms of anxiety such as intrusive thoughts and emotional distress. Reagan also mentions difficulty maintaining his usual work routine and focus due to the recent stressors. - Plan: - Discussed and encourage the use of cognitive-behavi oral strategies to manage anxiety, such as reframing anxious thoughts to perceive them as excitement, engaging in mindfulness, and actively inviting anxiety in to reduce its impact. - Continue supportive therapy sessions to monitor Reagan's anxiety levels and adjust coping strategies as needed, ensuring they are tailored to his ongoing life circumstances and mental health needs. - Provided Reagan with cognitive restructuring worksheets to help identify and challenge anxious thoughts, particularly those related to catastrophizing and fortune-telling. 08/10/2024 Attention-defi cit hyperactivity disorder, combined type (ICD-10 - F90.2) Anxiety and Stress Management - Assessment: Reagan continues to experience anxiety, particularly related to COVID-19 concerns. He reports intrusive thoughts and physical symptoms such as tightness in the throat and chest pressure. He learned new techniques at a conference, including the Emotional [place] Technique (EFT) and the Flash Technique. - Plan: - Incorporate EFT (tapping) and the Flash Technique into anxiety management routine. - Practice these techniques, especially before stressful work events or meetings. - Continue to document anxiety triggers and responses. Family Dynamics and Personal Relationships - Assessment: Reagan is dealing with complex family dynamics, including his grandmother's recent Parkinson's diagnosis and past family estrangement. He struggles with deciding how to engage with his grandmother and other family members in light of these circumstances. - Plan: - Encourage having his mother ask his grandmother if she would like to see him, to avoid potential rejection or awkwardness. - Discuss strategies for maintaining boundaries while still showing care for family members. 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 He recently had a successful major donor meeting, securing a six-figure gift. - Plan: - Employ stress management techniques such as EFT before high-pressure work situations. - Encourage celebrating successes, such as the recent major gift, to build confidence in professional abilities. 08/10/2024 Obsessive-comp ulsive disorder, unspecified (ICD-10 - F42.9) Anxiety and Stress Management - Assessment: Reagan continues to experience anxiety, particularly related to COVID-19 concerns. He reports intrusive thoughts and physical symptoms such as tightness in the throat and chest pressure. He learned new techniques at a conference, including the Emotional [place] Technique (EFT) and the Flash Technique. - Plan: - Incorporate EFT (tapping) and the Flash Technique into anxiety management routine. - Practice these techniques, especially before stressful work events or meetings. - Continue to document anxiety triggers and responses. Family Dynamics and Personal Relationships - Assessment: Reagan is dealing with complex family dynamics, including his grandmother's recent Parkinson's diagnosis and past family estrangement. He struggles with deciding how to engage with his grandmother and other family members in light of these circumstances. - Plan: - Encourage having his mother ask his grandmother if she would like to see him, to avoid potential rejection or awkwardness. - Discuss strategies for maintaining boundaries while still showing care for family members. 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 He recently had a successful major donor meeting, securing a six-figure gift. - Plan: - Employ stress management techniques such as EFT before high-pressure work situations. - Encourage celebrating successes, such as the recent major gift, to build confidence in professional abilities. 09/07/2024 Obsessive-comp ulsive disorder, unspecified (ICD-10 - F42.9) Anxiety Related to Upcoming Election - Assessment: Patient expresses anxiety related to the upcoming election, feeling nauseously optimistic. Patient has tomorrow off for election day, which may increase anxiety. - Plan: - Encourage the patient to engage in self-care activities and relaxation techniques to manage anxiety. - Recommend limiting exposure to news and social media to reduce anxiety triggers. - Schedule a follow-up appointment to discuss the patient's anxiety levels and coping strategies after the election. 09/07/2024 Obsessive-comp ulsive disorder, unspecified (ICD-10 - F42.9) Stable, continue fluoxetine 10mg daily. Refill sent in. Patient educated on all medications including potential benefits, side effects, risks. Educated on proper dosing schedule and importance of compliance. Continue counseling with Imani 10/23/2024 Attention-defi cit hyperactivity disorder, combined type (ICD-10 - F90.2) Anxiety and Stress - Assessment: Patient reported experiencing episodes of overwhelming feelings and difficulty focusing at work, as well as intrusive songs playing in their head during times of stress. Additionally, the patient feels overwhelmed without clear triggers. - Plan: - Encourage the patient to discuss these symptoms for further evaluation and potential adjustment of ADHD medication. - Recommend incorporating mindfulness techniques and stress management strategies into daily routine. - Encourage regular exercise, such as morning workouts, to help manage anxiety and stress. Disrupted Sleep and Exercise Routine - Assessment: Patient reported difficulty maintaining a consistent gym routine and has not been attending the gym regularly. The patient's partner's new job may also impact their routine. - Plan: - Encourage the patient to explore nearby gym options and consider a membership for both the patient and their partner. - Recommend establishing a consistent exercise routine, preferably in the morning, to improve sleep and overall well-being. Family and Social Stressors - Assessment: Patient discussed various family dynamics, including the father's unusual behavior, and changes in social circles, which may contribute to stress and anxiety. - Plan: - Encourage open communication with family members to address any concerns or feelings. - Support the patient in maintaining and fostering social connections, including hosting events and visiting friends. 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 - Recommend implementing stress management techniques and maintaining a healthy work-life balance. 10/23/2024 Obsessive-comp ulsive disorder, unspecified (ICD-10 - F42.9) Anxiety and Stress - Assessment: Patient reported experiencing episodes of overwhelming feelings and difficulty focusing at work, as well as intrusive songs playing in their head during times of stress. Additionally, the patient feels overwhelmed without clear triggers. - Plan: - Encourage the patient to discuss these symptoms for further evaluation and potential adjustment of ADHD medication. - Recommend incorporating mindfulness techniques and stress management strategies into daily routine. - Encourage regular exercise, such as morning workouts, to help manage anxiety and stress. Disrupted Sleep and Exercise Routine - Assessment: Patient reported difficulty maintaining a consistent gym routine and has not been attending the gym regularly. The patient's partner's new job may also impact their routine. - Plan: - Encourage the patient to explore nearby gym options and consider a membership for both the patient and their partner. - Recommend establishing a consistent exercise routine, preferably in the morning, to improve sleep and overall well-being. Family and Social Stressors - Assessment: Patient discussed various family dynamics, including the father's unusual behavior, and changes in social circles, which may contribute to stress and anxiety. - Plan: - Encourage open communication with family members to address any concerns or feelings. - Support the patient in maintaining and fostering social connections, including hosting events and visiting friends. 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 - Recommend implementing stress management techniques and maintaining a healthy work-life balance. 08/24/2024 Obsessive-comp ulsive disorder, unspecified (ICD-10 - F42.9) Anxiety Related to Upcoming Work Trip and Personal Life Changes - Assessment: Patient expresses anxiety about an upcoming work trip and personal life changes, including salary concerns. - Plan: - Continue practicing good hygiene during travel to minimize risk of illness. - Utilize coping strategies such as engaging with anxiety and re-focusing attention on other activities. 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 - Monitor anxiety levels during and after the trip, and report any significant changes or concerns. Obsessive-Compul sive Symptoms - Assessment: Patient experiences songs repeating in head, indicative of obsessive-compul sive symptoms. - Plan: - Continue using grounding techniques such as tapping and re-engaging in other activities. - Monitor the frequency and intensity of symptoms, and report any significant changes or concerns. Adjustment to Spouse's Employment Changes and Financial Concerns - Assessment: Patient is adjusting to spouse's employment changes and experiencing financial concerns. - Plan: - Utilize worst-case scenario exercise to manage anxiety related to financial concerns. - Maintain open communication with spouse regarding employment and financial situation. - Monitor emotional well-being and seek support as needed. Sleep Disturbances - Assessment: Patient reports waking up earlier than needed. - Plan: - Maintain a consistent sleep schedule and practice good sleep hygiene. - Monitor sleep patterns and report any significant changes or concerns. Social Support and Recreational Activities - Assessment: Patient engages in social and recreational activities, including a volleyball league and Halloween celebrations. - Plan: - Continue participating in social activities. - Encourage spouse to engage in hobbies and interests. Follow-up - Plan: Schedule a follow-up appointment after the work trip to discuss any changes in anxiety levels, obsessive-compul sive symptoms, and overall emotional well-being. 12/02/2024 Obsessive-comp ulsive disorder, unspecified (ICD-10 - F42.9) 12/21/2024 Obsessive-comp ulsive disorder, unspecified (ICD-10 - F42.9) Stable, continue fluoxetine 10mg daily. Refill sent in. Patient educated on all medications including potential benefits, side effects, risks. Educated on proper dosing schedule and importance of compliance. Continue counseling with [facility] 01/04/2025 Attention-defi cit hyperactivity disorder, combined type (ICD-10 - F90.2) 09/07/2024 Attention-defi cit hyperactivity disorder, combined type (ICD-10 - F90.2) Anxiety Related to Upcoming Election - Assessment: Patient expresses anxiety related to the upcoming election, feeling nauseously optimistic. Patient has tomorrow off for election day, which may increase anxiety. - Plan: - Encourage the patient to engage in self-care activities and relaxation techniques to manage anxiety. - Recommend limiting exposure to news and social media to reduce anxiety triggers. - Schedule a follow-up appointment to discuss the patient's anxiety levels and coping strategies after the election. 12/02/2024 Attention-defi cit hyperactivity disorder, combined type (ICD-10 - F90.2) 08/24/2024 Attention-defi cit hyperactivity disorder, combined type (ICD-10 - F90.2) Anxiety Related to Upcoming Work Trip and Personal Life Changes - Assessment: Patient expresses anxiety about an upcoming work trip and personal life changes, including salary concerns. - Plan: - Continue practicing good hygiene during travel to minimize risk of illness. - Utilize coping strategies such as engaging with anxiety and re-focusing attention on other activities. 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 - Monitor anxiety levels during and after the trip, and report any significant changes or concerns. Obsessive-Compul sive Symptoms - Assessment: Patient experiences songs repeating in head, indicative of obsessive-compul sive symptoms. - Plan: - Continue using grounding techniques such as tapping and re-engaging in other activities. - Monitor the frequency and intensity of symptoms, and report any significant changes or concerns. Adjustment to Spouse's Employment Changes and Financial Concerns - Assessment: Patient is adjusting to spouse's employment changes and experiencing financial concerns. - Plan: - Utilize worst-case scenario exercise to manage anxiety related to financial concerns. - Maintain open communication with spouse regarding employment and financial situation. - Monitor emotional well-being and seek support as needed. Sleep Disturbances - Assessment: Patient reports waking up earlier than needed. - Plan: - Maintain a consistent sleep schedule and practice good sleep hygiene. - Monitor sleep patterns and report any significant changes or concerns. Social Support and Recreational Activities - Assessment: Patient engages in social and recreational activities, including a volleyball league and Halloween celebrations. - Plan: - Continue participating in social activities. - Encourage spouse to engage in hobbies and interests. Follow-up - Plan: Schedule a follow-up appointment after the work trip to discuss any changes in anxiety levels, obsessive-compul sive symptoms, and overall emotional well-being. 05/18/2025 Attention-defi cit hyperactivity disorder, combined type (ICD-10 - F90.2) 03/10/2025 Encounter for screening for depression (ICD-10 - Z13.31) 02/02/2025 Attention-defi cit hyperactivity disorder, combined type (ICD-10 - F90.2) 12/02/2024 Other Anxiety and Concentration Issues - Assessment: The patient experiences anxiety and concentration issues. - Plan: - Continue practicing EMDR therapy to help reprocess memories and improve emotional well-being. - Encourage the use of the uivo-[id number] cue (curtain) when experiencing anxiety or distress. - Monitor anxiety levels and consider referral to a psychiatrist if symptoms worsen or do not improve. - Address concerns about work-related travel and safety. Sleep Disturbances - Assessment: The patient experiences sleep disturbances. - Plan: - Encourage maintaining a consistent sleep schedule and bedtime routine. - Advise limiting screen time, especially social media, before bed. - Continue practicing morning exercise to help regulate sleep patterns. - Reassess sleep quality at the next visit and consider further evaluation if no improvement. Stress Related to Work and Family - Assessment: The patient experiences stress related to work and family. - Plan: - Encourage open communication with spouse regarding concerns about work travel. - Support the patient in seeking balance between staying informed and avoiding excessive news consumption. Follow-up: - Schedule a follow-up appointment in 2-6 weeks to assess progress and make any necessary adjustments to the treatment plan. - Encourage the patient to contact the clinic if any concerns or significant changes in symptoms arise before the next scheduled appointment. 12/21/2024 Other SSRI/SNRI side effects discussed including but not limited to, gastric upset, nausea, vomiting, diarrhea and/or constipation, weight changes, sexual side effects including loss of libido, increased suicidal thoughts/behavior s in children and young adults, and serotonin syndrome. 01/04/2025 Other Work-related Stress and Anxiety - Assessment: Patient reports high levels of stress due to work responsibilities, including hiring processes, program prioritization, and additional tasks not directly related to their role. The patient experiences a loop of negative thoughts when overwhelmed. - Plan: - Encourage the patient to continue practicing mindfulness techniques and self-care activities, such as exercise and engaging in hobbies. - Discuss strategies for setting boundaries and assertiveness in the workplace to prevent feeling overwhelmed and taken advantage of. - Monitor the patient's stress levels and anxiety symptoms in future sessions. Trust Issues and Screven Setting - Assessment: Patient has a history of trusting others too easily, leading to feelings of being taken advantage of and overwhelmed. The patient has experienced being criticized behind their back, contributing to trust issues. - Plan: - Explore the patient's patterns of trust and boundary setting in relationships, both personal and professional. - Develop strategies for setting healthy boundaries and improving assertiveness skills. - Address any underlying beliefs or fears contributing to the patient's trust issues. Self-esteem and Self-worth Concerns - Assessment: Patient expresses a need for approval from others and a desire to be liked, stemming from childhood experiences related to their sexual orientation and interests. - Plan: - Utilize EMDR therapy to address and reprocess the patient's past experiences and their impact on self-esteem and self-worth. - Encourage the patient to practice self-compassion and positive self-talk to counter negative beliefs about themselves. - Monitor the patient's progress in developing a healthier self-image and reducing the need for external validation. Coping with Past Negative Experiences - Assessment: Patient reports being triggered by interactions with a previous boss and feeling a lack of control in certain situations. - Plan: - Continue to explore the patient's past experiences and their impact on current emotions and reactions. - Develop coping strategies for managing triggers and regaining a sense of control in difficult situations. - Monitor the patient's progress in managing triggers and emotional responses to past experiences. 02/02/2025 Other Work-related Stress and Screven Issues - Assessment: Reagan reports improved ability to set boundaries at work, declining additional responsibilities when appropriate. 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 - Plan: - Continue to reinforce and practice boundary-setting techniques in the workplace. - Monitor progress in new supervisory role and address any challenges that arise. - Explore coping strategies for managing workplace stress and tension. - Evaluate the impact of the new temporary office assistant on workload and stress levels. Past Workplace Trauma and Negative Self-Perception - Assessment: Reagan continues to process a significant negative experience with a previous boss from 2 years ago, involving denial of overtime, accusations of unethical behavior, and discouragement of promotion. This experience has contributed to feelings of helplessness, lack of empowerment, and frustration. Through EMDR therapy, Reagan has made progress in processing this trauma, with the disturbance level decreasing from a 7/10 to a 1-2/10. He expresses a desire to view himself as a strong self-advocate and more confident individual. - Plan: - Continue EMDR therapy to further process and resolve workplace trauma. - Focus on installation phase of EMDR in the next session. - Reinforce positive self-perception and self-advocacy skills. - Monitor for any residual negative beliefs or emotions related to the past experience. 02/24/2025 Other Difficulty Setting Boundaries and Codependency - Assessment: Reagan, a 35-year-old male in a same-sex marriage, presents with difficulty setting boundaries and saying no. This manifests as taking on excessive responsibilities and attempting to fix everything in both personal and professional life. His career role focuses on problem-solving, potentially reinforcing codependent behaviors. 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 He fears the group may collapse if he relinquishes his role, indicating over-responsibili ty and difficulty trusting others. - Plan: - Continue EMDR therapy to address underlying causes of boundary issues and codependency. - Explore strategies for delegating responsibilities in the LGBTQ group without compromising its stability. - Discuss acceptance of potential outcomes if Reagan reduces his involvement in various commitments. - Identify and reinforce healthy boundary-setting behaviors in both personal and professional contexts. Stress-Induced Coping Mechanism (Song Loop) - Assessment: Reagan experiences a persistent song loop in his head during periods of high stress, identified as a childhood coping mechanism. As a child, he would listen to [place] music when upset, and this pattern now resurfaces as an intrusive thought during stressful situations. A recent trigger was dealing with air conditioner repair issues. Reagan reports feeling better after understanding the origin and purpose of this mental process. - Plan: - Educate Reagan on the relationship between childhood coping mechanisms and current stress responses. - Explore alternative, more adaptive stress management techniques to supplement or replace the song loop mechanism. - Monitor the frequency and intensity of the song loop as an indicator of stress levels in future sessions. Social Support Changes and Anxiety - Assessment: Reagan is experiencing significant changes in his social support system due to friends moving away. He is being more intentional about making new friends. Reagan also faces anxiety about potentially attending his great-grandmother 's in his hometown, stemming from lack of acceptance of his same-sex marriage by some family members and individuals in his small town of origin. - Plan: - Assist Reagan in developing strategies for building and maintaining new friendships. - Explore coping mechanisms for managing anxiety related to potential family conflicts and hometown visits. - Discuss options for self-care and support during challenging family events. - Consider role-playing exercises to prepare for potential difficult interactions with non-accepting family members or community members. Each section addresses Reagan's specific concerns and outlines corresponding plans for treatment and support. 03/10/2025 Other Work-related Stress - Assessment: Ede reported experiencing work-related stress due to his boss speaking negatively about him. He mentioned that his brain was getting caught in a loop regarding this situation. However, Ede has shown improvement in managing this stress, as he stated he has been able to create some emotional distance between his initial feelings about the situation and his current perspective. - Plan: - Continue to monitor work-related stress and its impact on Ede's mental health. - Encourage the use of coping strategies that have been effective in creating emotional distance from work-related stressors. Grief and Loss - Assessment: Ede is experiencing grief due to the recent passing of his great-grandmother . He is currently facing the challenge of managing his attendance at the upcoming services while balancing other obligations occurring during the same weekend. - Plan: - Provide support in navigating the grief process. - Assist Ede in prioritizing and managing his commitments related to the services and other obligations. Family Health Crisis - Assessment: Ede's [id number] recently suffered a stroke, which has created a complex caregiving situation. The situation is further complicated by her hoarding behavior and poor self-care habits. - Plan: - Offer support and guidance in navigating the caregiving responsibilities for Ede's rekfup-wz-vly. - Explore resources and strategies to address the hoarding behavior and improve self-care for Ede's ofxfsg-qk-wao. Changes in Social Support System - Assessment: Ede is experiencing changes in his social support system due to friends moving away. He and his are attempting to reframe this situation positively by viewing it as an opportunity for future visits and out-of-town activities. - Plan: - Continue to provide support and reassurance regarding the changes in Ede's social network. - Encourage Ede to maintain connections with friends who have moved and to plan visits when possible. - Explore ways to expand local social connections to supplement the loss of nearby friends. Each section addresses a specific problem area and outlines a corresponding plan for treatment and support. 03/24/2025 Other People-pleasing Behavior and Difficulty Setting Boundaries - Assessment: Ede exhibits a long-standing pattern of people-pleasing behavior and difficulty setting boundaries, stemming from childhood experiences. This affects his personal and professional relationships, causing exhaustion and prioritizing others' needs over his own. Recent experiences have highlighted this tendency. - Plan: - Explore cognitive-behavio ral strategies to address people-pleasing tendencies and improve boundary-setting skills. - Encourage practice of assertiveness techniques in personal and professional settings. - Develop strategies for balancing helping others and maintaining personal well-being. - Recommend reading The Let Them Theory by Laura Weber for insights on managing relationships and personal boundaries. - Process and reflect on recent experiences to identify opportunities for behavioral change. 04/07/2025 Other Obsessive-Compuls davi Disorder (OCD) with validation-seekin g behaviors - Assessment: Ede exhibits persistent validation-seekin g behaviors consistent with his OCD diagnosis. These behaviors manifest in various contexts, including social interactions, work relationships, and personal life events. - Plan: - Discuss with psychiatrist about optimizing OCD medication management, potentially exploring alternative SSRIs like Zoloft or adjusting current Prozac regimen. - Continue to practice mindfulness and cognitive restructuring techniques to manage validation-seekin g behaviors. - Encourage patient to sit with uncomfortable feelings when the urge to seek validation arises, as part of exposure therapy for OCD. Perfectionism and self-criticism - Assessment: Ede demonstrates long-standing patterns of perfectionism and harsh self-criticism, which appear to be intertwined with his OCD symptoms. He recounts childhood experiences where minor mistakes led to disproportionate emotional responses, such as crying and self-isolation during performances or auditions. These perfectionistic tendencies continue to impact his adult life, manifesting in work-related anxieties and interpersonal relationships. The patient shows insight into these patterns but struggles to modulate his responses effectively. - Plan: - Implement Cognitive Behavioral Therapy (CBT) techniques to challenge perfectionistic thoughts and develop more balanced self-evaluations. - Assign homework to practice self-compassion exercises and reframe failures as learning opportunities. - Explore the origins of perfectionism in childhood experiences and their impact on current functioning. Workplace interpersonal conflict - Assessment: Ede reports ongoing interpersonal difficulties with a coworker. This situation is causing significant distress and anxiety for Ede, particularly given his history of perfectionism and need for validation. The patient has attempted to address this issue in the past but feels it remains unresolved. - Plan: - Develop a strategy for addressing the workplace conflict, including drafting a script using the DEAR MAN technique from Dialectical Behavior Therapy. - Explore ways to build resilience against workplace gossip and maintain professional boundaries. 05/05/2025 Other Social Anxiety and Self-Consciousnes s - Assessment: Ede reports feeling embarrassed and self-conscious when his or friends are not comfortable, leading to a belief that he is doing something wrong. He expresses a desire to feel more present around friends and family rather than focusing on their potential needs. This suggests ongoing social anxiety and difficulty with interpersonal relationships, potentially impacting his quality of life and social interactions. - Plan: - Explore cognitive-behavio ral strategies to address social anxiety and self-consciousnes s. - Discuss techniques for mindfulness and staying present in social situations. - Encourage practice of assertiveness and boundary-setting skills. Occupational Functioning - Assessment: Despite reported distractions and recent stressors, Ede received a positive annual review at work, indicating maintained occupational functioning. This suggests resilience and the ability to compartmentalize personal challenges from professional responsibilities. - Plan: - Reinforce positive work performance and coping strategies. - Explore work-life balance techniques to maintain professional success while addressing personal challenges. 05/18/2025 Other Obsessive-Compuls davi Tendencies - Assessment: Ede presents with symptoms consistent with obsessive-compuls davi tendencies, manifesting as a compulsion to act on perceived needs and adhere strictly to schedules. These tendencies appear to be interfering with his ability to relax and enjoy unstructured time, as evidenced by feelings of guilt when he doesn't have plans. His OCD-like behaviors seem to extend from his professional life, where his strength in catering to others' needs is beneficial, into his personal life, where it may be detrimental. The patient's difficulty in chilling and relaxing, as noted by friends, further supports the assessment of OCD-like traits impacting his social functioning. - Plan: - Implement cognitive restructuring techniques to address catastrophizing thoughts - Develop strategies for managing unstructured time without triggering guilt - Practice new neuropathway development to promote alternative thought patterns - Explore the balance between professional strengths and personal boundaries Difficulty Setting Boundaries - Assessment: Ede demonstrates challenges in setting appropriate boundaries, particularly in his personal life. This suggests a potential lack of differentiation between professional and personal roles, which may be contributing to his stress and difficulty relaxing. - Plan: - Develop strategies for setting and maintaining personal boundaries - Explore the differentiation between professional and personal relationship dynamics - Practice assertiveness techniques to communicate needs and limits effectively Ede, a male patient working in [employer], seeks counseling for feelings of being taken advantage of at home, difficulty relaxing, and OCD tendencies affecting his daily life and social interactions. 06/02/2025 Other Ede, a male patient, presents with concerns about self-criticism, feeling responsible for others' enjoyment, and validation-seekin g behaviors, while also expressing worry about his father's recent unusual behavior. Self-criticism and excessive responsibility Assessment: Ede reports ongoing issues with self-criticism and feeling excessively responsible for others' enjoyment. A recent example involved a volleyball game where he felt responsible for the team's loss and their lack of enjoyment. This pattern of thinking suggests persistent cognitive distortions related to personal responsibility and self-worth. The patient has shown progress in resolving similar issues with his boss, indicating potential for improvement with continued intervention. Plan: - Continue EMDR therapy focusing on themes of I Beat Myself Up and I Feel Responsible When Others Are Not Having Fun - Implement cognitive restructuring techniques to address distorted thinking patterns - Encourage self-compassion exercises to counteract self-criticism Validation-seekin g behavior Assessment: Ede demonstrates a tendency to seek validation excessively, particularly with his spouse and work subordinates. This behavior manifests as frequent check-ins, up to three times a day or more. The pattern suggests underlying insecurity or anxiety about his performance and relationships, which may be impacting his personal and professional life. Plan: - Implement a structured plan to reduce validation-seekin g behaviors: - Gradually decrease check-in frequency to once a week - Develop coping strategies to manage anxiety between check-ins - Explore underlying causes of validation-seekin g behavior in future sessions Plan Of Treatment Next Appt Details Provider Name:Imani Coats Gilbert Smith, 06/16/2025 01:00:00 PM, [address], [facility] [address], [place], [address], Provider Name:Imani Coats Gilbert Smith, 06/23/2025 04:00:00 PM, [address], [facility] [address], [place], [address], Provider Name:Imani Smith, 07/07/2025 04:00:00 PM, [address], [facility] [address], [place], [address], Provider Name:Imani Smith, 07/29/2025 02:00:00 PM, [facility], [facility] [address], [place], [address], Provider Name:Esperanza huertas, 09/06/2025 08:00:00 AM, [address], [facility] [address], [place], [address], Insurance Providers Payer Name Payer Address Payer Phone Subscriber Number Group Number Insured Name Patient Relationship to Insured Coverage Start Date Coverage End Date [employer] Pos [address] [place] [address] [id number] CHING Self - patient is the insured Medical (General) History Medical History History ICD Code Problems: Asthma COVID-19 Gastroesophageal reflux disease without esophagitis Hyperlipidemia Intrusive thoughts Liver cyst Obsessive-compulsive disorder Pain of left knee joint Prepatellar bursitis of left knee , Surgical History Surgery Date(Month/Year) Any surgical history 06/04/2006 Appendectomy ([id number]) 06/04/2006
== END 2025-06-14 14:38 | disposition home or self-care (01) ==
PROVIDERS: PCP Internal Medicine
DX: M89.9 Disorder of bone, unspecified (principal)
CPT/HCPCS: 70260